=== PATIENT | male | born 1960 | race Caucasian/White ===

== ENCOUNTER → 2016-08-23 | Outpatient (CLI) | payer MEDICARE, OTHER ==
[~2016-08-23] MED LIST: ADVA250A INH; ALCOHOL SWABS; ATOR40TA16 PO; CARV6.252 PO; FLUTI110I INH; GABA600T PO; GLUCTES12; HYDR-3583 PO; IPRASOL INH; LISI-519 PO; LORA-474 PO; METF-382 PO; METF1000 PO; NEBULIZER1 MI1; SALM50I INH; VENTAER INH; XARE20TA PO; [UNRECOGNIZED DRUG - CODE]; [UNRECOGNIZED DRUG - OTHER]; lancets; test strips
--- NOTE | 2016-08-27 11:49 | RSPPFT ---
DATE OF PROCEDURE: 08/23/16 COMMENTS: The forced vital capacity shows a marked decrease. The FEV1 and FEF 25-75 are both reduced with a normal FEV1/FVC ratio. Of note is that the flow volume loop shows that the exhalation phase was interrupted and that may explain the low FEV1. There is no significant improvement after bronchodilator. IMPRESSION: This is consistent with possible restrictive lung disease but a better study should be done with a normal flow volume loop.
== END ==
LOC: HRSP 10:44
PROVIDERS: ATTEND Family Medicine
DX: J44.9 Chronic obstructive pulmonary disease, unspecified (principal)
CPT/HCPCS: 94060